=== PATIENT | female | born 1990 | race Caucasian/White ===

== ENCOUNTER 2023-04-29 21:33 | Emergency (ER) | payer OTHER ==
[~2023-04-29] VITALS: Ht 165.1 cm; Wt 92.5 kg
== END 2023-04-29 23:27 | disposition home or self-care (01) ==
LOC: ED 21:33
DX: B34.9 Viral infection, unspecified (principal); Z20.822 Contact with and (suspected) exposure to COVID-19; R42 Dizziness and giddiness; F17.210 Nicotine dependence, cigarettes, uncomplicated; Z88.2 Allergy status to sulfonamides; Z88.1 Allergy status to other antibiotic agents

== ENCOUNTER → 2023-12-21 | Outpatient (CLI) | payer OTHER | END | disposition home or self-care (01) | LOC: NM 12-14 07:00 | PROVIDERS: ATTEND Family Medicine | DX: E05.90 Thyrotoxicosis, unspecified without thyrotoxic crisis or storm (principal); R00.2 Palpitations ==

== ENCOUNTER 2023-12-25 19:17 | Emergency (ER) | payer OTHER ==
[~2023-12-25] VITALS: Ht 165.1 cm; Wt 90.7 kg
[2023-12-25] MEDS ORDERED: Lidocaine Hydrochloride 15 ML UDC PO STA (19:33)
[2023-12-25] MEDS ORDERED: MG-AL HYDROXIDE/SIMETICONE 30 ML UDC PO STA (19:33)
[2023-12-25] MEDS ORDERED: Dicyclomine Hydrochloride 20 MG/10 ML OSYR PO STA (19:33)
[2023-12-25] MEDS ORDERED: FAMOTIDINE20 M1 PO (19:40)
[2023-12-25] MEDS ORDERED: HYDROXYZINE PAM25 M1 PO (19:40)
[2023-12-25] MEDS ORDERED: OMEPRAZOLE40 MG PO (19:40)
[2023-12-25 19:45] LABS: BASO % 0.5 % (0.0-1.0); EOS # 0.2 10*3/uL (0.0-0.4); EOS % 2.9 % (1.0-4.0); HEMATOCRIT 34.2 % (37.0-47.0); LYMPH # 1.8 10*3/uL (1.3-4.4); LYMPH % 31.2 % (27.0-41.0); MEAN CELL VOLUME 86.6 fl (81.0-99.0); MEAN CORPUSCULAR HGB 29.4 pg (27.0-31.0); MEAN CORPUSCULAR HGB CONC 33.9 g/dl (33.0-37.0); MONO # 0.4 10*3/uL (0.1-1.0); MONO % 7.5 % (3.0-9.0); NEUT # 3.3 10*3/uL (2.3-7.9); NEUT % 57.9 % (47.0-73.0); PLATELET COUNT AUTOMATED 204 10*3/uL (130-400); RED BLOOD COUNT 3.95 10*6/uL (4.10-5.10); WHITE BLOOD COUNT 5.8 10*3/uL (4.8-10.8)
[2023-12-25] MEDS ORDERED: PROTONIX40 MG PO (19:46)
[2023-12-25 20:01] LABS: ALKALINE PHOSPHATASE 83 U/L (46-116); BUN 9 mg/dl (9-23); CHLORIDE 104 mmol/L (98-107); POTASSIUM 3.4 mmol/L (3.4-5.1); SGPT/ALT 21 U/L (5-49); TOTAL PROTEIN 6.9 gm/dL (6.0-8.0)
[2023-12-25] MEDS ORDERED: Pantoprazole Sodium 20 MG TAB PO ONE ×2 (20:20)
== END 2023-12-25 20:33 | disposition home or self-care (01) ==
LOC: ED 19:17
PROVIDERS: Nurse Practitioner Family
DX: K21.9 Gastro-esophageal reflux disease without esophagitis (principal); R07.89 Other chest pain; Z88.2 Allergy status to sulfonamides; Z88.1 Allergy status to other antibiotic agents; Z88.8 Allergy status to other drugs, medicaments and biological substances; Z87.891 Personal history of nicotine dependence

== ENCOUNTER 2024-01-21 13:04 | Emergency (ER) | payer OTHER ==
[~2024-01-21] VITALS: Ht 165.1 cm; Wt 90.7 kg
[~2024-01-21 13:04] MED LIST: FAMOTIDINE20 M1 PO; HYDROXYZINE PAM25 M1 PO; OMEPRAZOLE40 MG PO; PROTONIX40 MG PO
[2024-01-21] MEDS ORDERED: Lidocaine Hydrochloride 15 ML UDC PO STA (15:40)
[2024-01-21] MEDS ORDERED: MG-AL HYDROXIDE/SIMETICONE 30 ML UDC PO STA (15:40)
[2024-01-21] MEDS ORDERED: Dicyclomine Hydrochloride 20 MG/10 ML OSYR PO STA (15:40)
[2024-01-21] MEDS ORDERED: METHIMAZOLE10 MG PO (15:45)
[2024-01-21] MEDS ORDERED: SUBOXONE 8 MG-1 EACH BC (15:46)
== END 2024-01-21 13:40 | disposition home or self-care (01) ==
LOC: ED 13:04
DX: K21.9 Gastro-esophageal reflux disease without esophagitis (principal); Z88.2 Allergy status to sulfonamides; Z88.1 Allergy status to other antibiotic agents; Z88.8 Allergy status to other drugs, medicaments and biological substances

== ENCOUNTER 2024-07-05 21:17 | Emergency (ER) | payer OTHER ==
[~2024-07-05] VITALS: Ht 165.1 cm; Wt 83.9 kg
[~2024-07-05 21:17] MED LIST changes: +METHIMAZOLE10 MG PO; +SUBOXONE 8 MG-1 EACH BC
== END 2024-07-05 22:55 | disposition home or self-care (01) ==
LOC: ED 21:17
DX: R94.6 Abnormal results of thyroid function studies (principal); E05.90 Thyrotoxicosis, unspecified without thyrotoxic crisis or storm; Z88.2 Allergy status to sulfonamides; Z88.1 Allergy status to other antibiotic agents; Z79.899 Other long term (current) drug therapy

== ENCOUNTER 2024-07-27 17:02 | Emergency (ER) | payer OTHER ==
[~2024-07-27] VITALS: Ht 165.1 cm; Wt 90.7 kg
[2024-07-27] MEDS ORDERED: Acetaminophen/Oxycodone 5 MG/325 MG TABLET PO ONE (17:20)
[2024-07-27] MEDS ORDERED: MELOXICAM15 MG PO (17:26)
== END 2024-07-27 17:37 | disposition home or self-care (01) ==
LOC: ED 17:02
DX: M26.623 Arthralgia of bilateral temporomandibular joint (principal); F17.210 Nicotine dependence, cigarettes, uncomplicated; Z88.2 Allergy status to sulfonamides; Z88.1 Allergy status to other antibiotic agents; Z79.899 Other long term (current) drug therapy

== ENCOUNTER 2024-09-22 16:38 | Emergency (ER) | payer OTHER ==
[~2024-09-22] VITALS: Ht 165.1 cm; Wt 81.6 kg
[~2024-09-22 16:38] MED LIST changes: +MELOXICAM15 MG PO
[2024-09-22] MEDS ORDERED: LEVOFLOXACIN750 M2 PO (17:16)
== END 2024-09-22 17:29 | disposition home or self-care (01) ==
LOC: ED 16:38
DX: J40 Bronchitis, not specified as acute or chronic (principal); R59.0 Localized enlarged lymph nodes; F17.290 Nicotine dependence, other tobacco product, uncomplicated; Z88.2 Allergy status to sulfonamides; Z88.1 Allergy status to other antibiotic agents; Z79.899 Other long term (current) drug therapy

== ENCOUNTER → 2024-11-07 | Outpatient (CLI) | payer OTHER ==
[~2024-11-07] MED LIST changes: +LEVOFLOXACIN750 M2 PO
[2024-11-07 13:50] LABS: FREE T4 1.53 ng/dl (0.89-1.76)
== END | disposition home or self-care (01) ==
LOC: LAB 13:02
PROVIDERS: Student in an Organized Health Care Education/Training Program; ATTEND Internal Medicine Endocrinology, Diabetes & Metabolism
DX: E05.00 Thyrotoxicosis with diffuse goiter without thyrotoxic crisis or storm (principal)

== ENCOUNTER → 2025-01-01 | Outpatient (CLI) | payer OTHER ==
[~2025-01-01] MED LIST changes: +HYDROXYZINE HCL25 MG PO
== END | disposition home or self-care (01) ==
LOC: US 13:30
PROVIDERS: ATTEND Internal Medicine Endocrinology, Diabetes & Metabolism
DX: E07.89 Other specified disorders of thyroid (principal); E05.00 Thyrotoxicosis with diffuse goiter without thyrotoxic crisis or storm